=== PATIENT | male | born 1950 | race Caucasian/White ===

== ENCOUNTER 2016-05-12 11:03 | Inpatient (IN) | payer BC, MEDICARE ==
[~2016-05-12] VITALS: Ht 157.5 cm; Wt 83.5 kg
[~2016-05-12 11:03] MED LIST: ASPI-664 PO; CARV6.2579 PO; CRES10 PO; DIGO125T PO; FURO20TA PO; LOSA50TA6 PO; SITA100T8 PO
[2016-05-12] MEDS ORDERED: ASPIRIN 325 MG TAB PO ONE (12:30)
[2016-05-12] MEDS ORDERED: FUROSEMIDE 40 MG INJ IV ONE (12:30)
[2016-05-12 12:38] LABS: BASOPHIL # 0.1 10^3/ul (0.0-0.1); BASOPHILS % 0.8 % (0.0-2.0); EOSINOPHILS # 0.2 10^3/ul (0.0-0.5); EOSINOPHILS % 2.2 % (0.0-7.0); HEMATOCRIT 42.7 % (42.0-52.0); HEMOGLOBIN 13.9 g/dl (14.0-18.0); LYMPHOCYTES % 12.1 % (15.0-51.0); MEAN CORPUSCULAR HEMOGLOBIN 28.2 pg (29.0-33.0); MEAN CORPUSCULAR HGB CONC 32.6 g/dl (32.0-37.0); MEAN CORPUSCULAR VOLUME 86.7 fl (82.0-101.0); MEAN PLATELET VOLUME 7.7 fl (7.4-10.4); MONOCYTE # 1.2 10^3/ul (0.3-0.9); MONOCYTES % 13.8 % (0.0-11.0); NEUTROPHILS % 71.1 % (39.0-77.0); PLATELET COUNT 240 10^3/UL (140-440); RED BLOOD COUNT 4.92 10^6/ul (4.70-6.10); RED CELL DISTRIBUTION WIDTH 18.1 % (11.5-14.5); UNCORRECTED WBC 8.4 10^3/ul (4.8-10.8); WHITE BLOOD COUNT 8.4 10^3/ul (4.8-10.8)
[2016-05-12 12:39] LABS: CONDITION 1
--- NOTE | 2016-05-12 12:39 | RADRPT ---
PROCEDURE: XR Chest. CLINICAL INDICATION: Shortness of breath. TECHNIQUE: Single frontal view. COMPARISON: 05/02/2014. FINDINGS: There is moderate left basilar atelectasis, improved. The lungs are otherwise clear appear The heart is enlarged. There is calcification in the aorta consistent with atherosclerosis. There are sternal wires. There may be a small left pleural effusion. There is no right pleural effusion. There is no pneumothorax. IMPRESSION: 1. Moderate left basilar atelectasis, improved. 2. Cardiomegaly and atherosclerosis. 3. Previous median sternotomy. 4. Possible small left pleural effusion. RPTAT: QQ .Parish Lee MD, MD Date Time Electronically viewed and signed by .Parish Lee MD, MD on 05/12/2016 12:39 .R/
[2016-05-12 12:40] LABS: LH ANALYZER COMMENTS 1
[2016-05-12 12:46] LABS: ALBUMIN 3.5 g/dl (3.3-4.9)
[2016-05-12 12:47] LABS: POTASSIUM 4.7 mmol/L (3.5-5.1)
[2016-05-12 12:48] LABS: CREATININE 0.65 mg/dl (0.61-1.24)
[2016-05-12 12:49] LABS: ALBUMIN/GLOBULIN RATIO 0.89; BILIRUBIN,INDIRECT 0.6 mg/dl (0-1.1); BILIRUBIN,TOTAL 0.6 mg/dl (0.2-1.3); TOTAL PROTEIN 7.4 g/dl (6.1-8.1)
[2016-05-12 13:02] LABS: TROPONIN-I 0.02 ng/ml (0.00-0.12)
[2016-05-12] MEDS ORDERED: ENALAPRILAT 1.25 MG INJ IV ONE (13:30)
--- NOTE | 2016-05-12 13:50 | ERA ---
ER Documentation Chief Complaint Date/Time DATE: 05/12/16 TIME: 13:44 Chief Complaint here for paracenthesis, ap, sob on exertion,hx cbag HPI 65-year-old man presents with increasing dyspnea on exertion, orthopnea, paroxysmal nocturnal dyspnea, and bilateral lower extremity swelling despite using furosemide as prescribed daily. He denies high salt intake. Patient denies chest pain, no cough, no fevers or chills, no vomiting or diarrhea. Patient has a history of congestive heart failure last EF equals 50% ROS All systems reviewed and are negative except as per history of present illness. Medications Home Meds Active Scripts Losartan Potassium* (Losartan Potassium*) 50 Mg Tablet, 50 MG PO DAILY, #60 TAB Prov:TANI CAMPBELL 05/05/14 Furosemide* (Lasix*) 20 Mg Tab, 20 MG PO DAILY, #60 Prov:TANI CAMPBELL 05/05/14 Reported Medications Aspirin* (Aspirin* EC) 81 Mg Tablet.dr, 81 MG PO DAILY, TAB 05/01/14 Digoxin* (Digoxin*) 0.125 Mg Tab, 0.125 MG PO DAILY, TAB 05/01/14 Carvedilol* (Carvedilol*) 6.25 Mg Tablet, 6.25 MG PO BID, TAB 05/01/14 Sitagliptin* (Januvia*) 100 Mg Tablet, 100 MG PO DAILY, TAB 05/01/14 Rosuvastatin Calcium* (Crestor*) 10 Mg Tablet, 10 MG PO DAILY 10/23/11 Allergies Allergies: Coded Allergies: No Known Allergy (Unverified , 05/01/14) PMhx/Soc Hypertension, diabetes mellitus, congestive heart failure, coronary bypass graft and later angioplasty with stent placement History of Surgery: No Anesthesia Reaction: No Hx Neurological Disorder: No Hx Respiratory Disorders: No Hx Cardiac Disorders: Yes (open heart surgery) Hx Psychiatric Problems: No Hx Miscellaneous Medical Probl: Yes (Ascites) Hx Alcohol Use: No Hx Substance Use: Yes (Long time ago. Won't say.) Hx Tobacco Use: No Smoking Status: Never smoker FmHx Family History: No diabetes Physical Exam Vitals Vital Signs Date Time Temp Pulse Resp B/P Pulse Ox O2 Delivery O2 Flow Rate FiO2 05/12/16 11:09 98.1 81 20 193/98 98 Physical Exam GENERAL: Well-developed, well-nourished, well-hydrated, in no apparent distress , looks nontoxic in appearance HEENT: Moist mucous membranes, pink conjunctiva, positive JVD, no goiter, no jaundice or icterus, extraocular movements intact without pain. No submandibular induration, and no pharyngeal erythema NEURO: Alert and oriented 3, cranial nerves II through XII intact bilaterally, pupils equal round reactive to light, no focal deficits or facial asymmetry, sensation intact distally Strength 5/5 in upper and lower extremities bilaterally CARDIAC: Regular rate and rhythm, no murmurs rubs or gallops LUNGS: Crackles at the bases worse on the left compared to the right, no wheezing or stridor ABDOMEN: Soft nontender, no guarding, no rigidity, no rebound, no psoas sign no obturator sign. Normoactive bowel sounds SKIN: Warm and dry to touch, no abrasions, contusions, or hematomas, no lacerations, no ecchymosis, no target lesions, and without ulcers EXTREMITIES: No clubbing cyanosis, 3+ pitting edema in the lower extremities bilaterally, calves are bilaterally symmetrical, no Homans sign, no popliteal cord sign. Distal pulses equal and bilateral PSYCH: Normal affect without agitation or irritability Result Diagram: 05/12/16 1223 05/12/16 1223 Results 24 hrs Laboratory Tests Test 05/12/16 12:23 Alanine Aminotransferase (ALT/SGPT) 19IU/L Albumin 3.5g/dl Albumin/Globulin Ratio 0.89 Alkaline Phosphatase 151IU/L Anion Gap 19 Aspartate Amino Transf (AST/SGOT) 37IU/L B-Type Natriuretic Peptide 9170PG/ML Basophils # 0.110^3/ul Basophils % 0.8% Blood Morphology Comment Blood Urea Nitrogen 21mg/dl Calcium Level 9.0mg/dl Carbon Dioxide Level 24mmol/L Chloride Level 106mmol/L Creatinine 0.65mg/dl Direct Bilirubin 0.00mg/dl Eosinophils # 0.210^3/ul Eosinophils % 2.2% Globulin 3.90g/dl Glucose Level 152mg/dl Hematocrit 42.7% Hemoglobin 13.9g/dl Indirect Bilirubin 0.6mg/dl Lipase 134U/L Lymphocytes # 1.010^3/ul Lymphocytes % 12.1% Mean Corpuscular Hemoglobin 28.2pg Mean Corpuscular Hemoglobin Concent 32.6g/dl Mean Corpuscular Volume 86.7fl Mean Platelet Volume 7.7fl Monocytes # 1.210^3/ul Monocytes % 13.8% Neutrophils # 6.010^3/ul Neutrophils % 71.1% Nucleated Red Blood Cells # 0.010^3/ul Nucleated Red Blood Cells % 0.0/100WBC Platelet Count 31739^3/UL Potassium Level 4.7mmol/L Red Blood Count 4.9210^6/ul Red Cell Distribution Width 18.1% Sodium Level 144mmol/L Total Bilirubin 0.6mg/dl Total Protein 7.4g/dl Troponin I 0.020ng/ml White Blood Count 8.410^3/ul Current Medications Medications (Trade) Dose Ordered Sig/Abhishek Route PRN Reason Start Time Stop Time Status Last Admin Dose Admin Furosemide (Lasix) 60 mg ONCE ONCE IV 05/12/16 12:30 05/12/16 12:31 DC 05/12/16 12:39 Aspirin (Aspirin) 325 mg ONCE ONCE PO 05/12/16 12:30 05/12/16 12:31 DC 05/12/16 12:35 Enalaprilat (Vasotec Iv) 1.25 mg ONCE ONCE IV 05/12/16 13:30 05/12/16 13:31 DC 05/12/16 13:31 Procedures/MDM IV line was established patient was placed on lunchroom monitor rhythm strip revealed a sinus rhythm at about 80 bpm with upright P and T waves. Patient was afebrile. I administered furosemide 60 mg IV 1 and aspirin 325 mg p.o. for cardioprotective measures. For hypertension I administered enalapril 1.25 mg IV. One view chest x-ray performed, read by me as sternotomy wires in place and cardiomegaly with cephalization of vessels, no acute infiltrates, no pneumothorax. EKG performed, read by me: 76 bpm, normal sinus rhythm, normal axis, no acute ST segment changes, narrow QRS complex, with good R-wave progression in precordial leads. CBC and electrolytes were normal, liver function tests were normal, troponin was negative. BNP was over 9000 consistent with decompensated heart failure. Patient will be admitted to telemetry setting for continued medical management and cardiology consultation Departure Diagnosis: Primary Impression: CHF (congestive heart failure) Qualified Code: I50.21 - Acute systolic congestive heart failure Additional Impression: Hypertension Qualified Code: I10 - Essential hypertension Condition: Fair ARLENE SANCHEZ MD May 12, 2016 13:50
[2016-05-12] MEDS ORDERED: PRAV40TA76 PO (13:53)
[2016-05-12] MEDS ORDERED: METO25TA7 PO (13:54)
[2016-05-12] MEDS ORDERED: CARV12.579 PO (13:54)
[2016-05-12] MEDS ORDERED: LORAZEPAM 0.5 MG TAB PO PRN (16:00)
[2016-05-12] MEDS ORDERED: ACETAMINOPHEN 325 MG TAB PO PRN (16:00)
[2016-05-12] MEDS ORDERED: NITROGLYCERIN (SL) 0.4 MG TAB SL PRN (16:00)
[2016-05-12] MEDS ORDERED: NACL 0.9% 3 ML SYG IV SCH (16:00)
[2016-05-12] MEDS ORDERED: DOCUSATE SODIUM 100 MG CAP PO PRN (16:00)
[2016-05-12] MEDS ORDERED: ONDANSETRON 4 MG TAB PO PRN (16:00)
[2016-05-12] MEDS ORDERED: GLUCAGON 1 MG INJ IM PRN (17:30)
[2016-05-12] MEDS ORDERED: LISINOPRIL 5 MG TAB PO ONE (17:30)
[2016-05-12] MEDS ORDERED: DEXTROSE 50% 50 ML SYRINGE IV PRN ×2 (17:30)
[2016-05-12] MEDS ORDERED: GLUCOSE GEL 15 GRAM TUBE BUCCAL PRN (17:30)
[2016-05-12] MEDS ORDERED: GLUCOSE GEL 15 GRAM TUBE PO PRN ×2 (17:30)
--- NOTE | 2016-05-12 17:50 | HP ---
DATE OF ADMISSION: 05/12/2016 PUBLIC HEALTH WORKER: Cardiology. CHIEF COMPLAINT: Shortness of breath and fluid overload. HISTORY OF PRESENT ILLNESS: This is a pleasant 65-year-old gentleman with past medical history of c ongestive heart failure, hypertension, coronary artery disease status post coronary artery bypass gr aft, lower extremity angioplasty, diabetic mellitus, dyslipidemia who follows up with Dr. Cabezas, ca rdiology, as an outpatient, who presents to [facility] secondary to having lower e xtremity edema and mild shortness of breath, paroxysmal nocturnal dyspnea which he requires 2 pillow s to sleep at night. The patient also complains of having exacerbation of shortness of breath durin g ambulation more than 2 blocks. He denies having any chest pain, nausea, vomiting, diarrhea. No h eadache, dizziness, lightheadedness. No change in visual acuity, diplopia, photophobia. No recent travel and no sick contact. No calf pain. No heat and cold intolerance. No neck pain, no restrict ed range of motion in upper and lower extremities. Upon arrival to the emergency room, the patient was treated with digoxin, Vasotec, aspirin and Lasix. His vitals were found to be temperature 98.1, pulse 81, respirations 20, blood pressure 193/89, oxygen 98% room air. The patient was treated wit h 60 mg IV Lasix during the course of the emergency room. His chest x-ray demonstrated moderate lef t basilar atelectasis, cardiomegaly, atherosclerosis, previous median sternectomy, possible small pl eural effusion. The patient at this time denies having any other discomfort. PAST MEDICAL AND SURGICAL HISTORY: As above per HPI. MEDICATIONS: 1. Aspirin 81 mg. 2. Coreg 12.5 mg 3. Digoxin 0.125 mg. 4. Lasix 20 mg 5. Metoprolol XL 25 mg. 6. Pravastatin 40 mg. 7. Januvia 100 mg. ALLERGIES: NO KNOWN DRUG ALLERGIES. SOCIAL HISTORY: He is a former smoker who quit smoking about 4 years ago. FAMILY HISTORY: Positive for coronary artery disease, diabetes mellitus. REVIEW OF SYSTEMS: As above per HPI, otherwise 12 review of systems was found to be negative. PHYSICAL EXAMINATION: VITAL SIGNS: Temperature 98.3, pulse 72, respirations 20, blood pressure 160/100, oxygen saturation 97% room air. GENERAL APPEARANCE: The patient is lying in bed comfortably without any distress. He is awake, godfrey rt, oriented. He is able to answer my questions properly. He is not using any accessory muscles fo r breathing. EYES AND ENT: Conjunctivae and lids are normal. Pupils are normal. Extraocular normal. Hearing g rossly normal. Lips, teeth, gums normal. Oral mucosa moist. NECK: Supple. Trachea is midline. No lymphadenopathy. RESPIRATORY: Effort is normal. Clear to auscultate bilaterally. CARDIOVASCULAR: Normal S1, S2. Regular rhythm and rate. No murmur, no bruits, no edema. Peripher al pulses, radial pulses palpable. Cap refill is normal. CHEST: Normal expansion of thorax during inspiration. GASTROINTESTINAL: Abdomen is soft, nontender, not distended. Bowel sounds are present. No guardin g, no rebound. GENITOURINARY: Deferred. MUSCULOSKELETAL: Upper and lower extremities within normal limits, full range of motion, strength 5 /5 in both upper and lower extremities. NEUROLOGIC: Cranial nerves II through XII are grossly intact. PSYCHIATRIC: Normal judgment and insight. Alert and oriented x3. Mood and affect are normal. LABORATORY WORK: WBC 8.4, hemoglobin 13.9, hematocrit 42.7, platelets 240. Sodium 144, potassium 4 .0, chloride 106, bicarbonate 24, BUN 21, creatinine 0.65, glucose 152, calcium 9.0. BNP 9170. ASSESSMENT AND PLAN: 1. Congestive heart failure exacerbation with BMP 9170. Cardiology has been consulted. We will ob tain a 2-D echocardiogram. We will continue Coreg, Lasix, and Toprol. We will also start the patie nt on low dose of lisinopril. 2. Essential hypertension, uncontrolled at the time of admission. Restart Coreg and Lasix. Also, patient was started on low dose of lisinopril. Continue to monitor. 3. Dyslipidemia. Continue statin. Follow lipid panel in a.m. 4. Diabetes mellitus. Continue Januvia. Place the patient on low-carbohydrate diet. 5. History of coronary artery disease status post coronary artery bypass graft. Continue aspirin, beta eliane, statin. Cardiology has been consulted. 6. We will continue to monitor patient closely. Further recommendations, management, and treatment as per clinical course. Total amount of time spent for evaluation of patient and admission workup, 40 minutes. Dictated By: RASHAWN PÉREZ MD PN/[place] Conf#: [id number] DID#: [id number]
[2016-05-12] MEDS: INSULIN ASPART [NOVOLOG] 3 ML PEN SC SCH ×2 (18:00→21:00)
[2016-05-12] MEDS: FUROSEMIDE 20 MG INJ IV SCH (19:15)
[2016-05-12] MEDS: ATORVASTATIN 10 MG TAB PO SCH (21:37)
[2016-05-12 22:57] VITALS: TEMP 98.4
[2016-05-13] VITALS (12 sets, daily range): BP systolic 130–175; BP diastolic 65–87; PULSE 34–71; RESP 18–21; Ht 157.5 cm; Wt 83.5 kg
[2016-05-13] MEDS: FUROSEMIDE 20 MG INJ IV SCH (06:14)
[2016-05-13] MEDS: INSULIN ASPART [NOVOLOG] 3 ML PEN SC SCH ×4 (06:14→20:29)
[2016-05-13] MEDS: ASPIRIN (EC) 81 MG TAB PO SCH (08:19)
[2016-05-13] MEDS: LINAGLIPTIN 5 MG TABLET PO SCH (08:19)
[2016-05-13] MEDS: ENOXAPARIN 40 MG/0.4 ML SYG SC SCH (08:40)
[2016-05-13] MEDS ORDERED: LISINOPRIL 5 MG TAB PO SCH (09:00)
[2016-05-13] MEDS ORDERED: FUROSEMIDE 20 MG TAB PO SCH (09:00)
[2016-05-13] MEDS ORDERED: DIGOXIN 0.125 MG TAB PO SCH (09:00)
[2016-05-13] MEDS ORDERED: METOPROLOL (XL) 25 MG TAB PO SCH (09:00)
[2016-05-13] MEDS ORDERED: LISINOPRIL 10 MG TAB PO ONE (10:00)
--- NOTE | 2016-05-13 10:22 | PDOCDIS ---
Discharge Instructions CONDITION Patient Condition: Good HOME CARE INSTRUCTIONS: Special Diet: cardiac ACTIVITY: Activity Restrictions: No Restrictions FOLLOW UP/APPOINTMENTS Appointments Follow up with cardiology and PCP in one week RASHAWN PÉREZ MD May 13, 2016 10:22
[2016-05-13] MEDS ORDERED: PRAV40TA76 PO (10:28)
[2016-05-13] MEDS ORDERED: FURO20TA PO (10:28)
[2016-05-13] MEDS ORDERED: CARV12.579 PO (10:28)
[2016-05-13] MEDS ORDERED: BENA10TA48 PO (10:28)
[2016-05-13] MEDS ORDERED: SITA100T8 PO (10:28)
--- NOTE | 2016-05-13 11:49 | DS ---
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 PROCEDURE: Echocardiogram DISCHARGE DIAGNOSES: 1. Congestive heart failure exacerbation. Patient is status post Coreg, Lasix, Benazepril. Cardio logy was consulted. Follow cardiology as outpatient. 2. Essential hypertension, uncontrolled at the time of admission. Patient has been continued on Co reg, Lasix and has also been started on BRETT inhibitor. 3. Dyslipidemia. Continue statin. 4. Diabetes mellitus, well controlled on Januvia. 5. History of coronary artery disease status post coronary artery bypass graft. Continue aspirin, beta blockers, statin. MEDICATIONS: 1. New prescription, benazepril 10 mg 1 tab p.o. daily. 2. The patient will continue aspirin 81 mg. 3. Coreg 12.5 mg b.i.d. 4. Digoxin 0.125 mg. 5. Pravastatin 40 mg. 6. Januvia 100 mg. 7. Lasix has been changed from 20 mg daily to b.i.d. 8. Medication which stopped was metoprolol since patient was also on Coreg. ALLERGIES: NO KNOWN DRUG ALLERGIES. DISPOSITION: Home. DIET: Cardiac diet. ACTIVITY: As tolerated. HOSPITAL COURSE: This is a very pleasant 65-year-old gentleman with past medical history of congest lance heart failure, hypertension, coronary artery disease status post coronary bypass graft and lower extremity angioplasty, diabetes mellitus, dyslipidemia, who presented to [facility] secondary to having lower extremity edema and mild shortness of breath, paroxysmal nocturnal dysp mg which requires 2 pillows to sleep at night. Patient also has been complaining of having exacerb ation of shortness of breath during ambulation 1 or 2 blocks. The patient denies having any chest p ain, nausea, vomiting, diarrhea. No headache, no recent travel history. No sick contact. Upon arr ival to emergency, the patient's blood pressure was found to be 192/89. He was treated with Vasotec , aspirin and IV Lasix. His blood pressure started to improve. He was admitted to telemetry floor. Cardiology was consulted. Patient has been having good diuresis of total of 1850 mL since his adm ission. He has been able to tolerate his oral intake. He has been able to ambulate without any dif ficulties, lower extremity edema has improved significantly. Regarding his hypertension, his blood pressure was better controlled since he has been started on an BRETT inhibitor. He has been continue d on Coreg. At this time, we will discontinue metoprolol since he is already on Coreg. His Lasix h as been increased to twice daily. I have also spoken to him regarding the importance of being on a low salt diet and being compliant with his medication and his diet. At this time, patient is medica lly stable to be discharged home after evaluation by the patient financial coordinator with [facility]. Vitals, temperature 98.1, pulse 68, respiration 18, blood pressure 160/77 whic h was this morning, pulse ox 97% on room air. Labs this morning. After evaluation with cardiology, he was discharged home in stable condition with close followup with his primary care ____ cardiolog y. Dictated By: RASHAWN BRYSON/[place] Conf#: [id number] DID#: [id number]
[2016-05-13] MEDS: DIGOXIN 0.125 MG TAB PO SCH (13:00)
--- NOTE | 2016-05-13 14:20 | RADRPT ---
PROCEDURE: US Abdomen limited . CLINICAL INDICATION: Ascites TECHNIQUE: Multiple real-time images were acquired of the patient's abdomen utilizing a high resol ution transducer. COMPARISON: None FINDINGS: There is a moderate amount of ascites. RPTAT: AA IMPRESSION: Moderate amount of ascites. .Charles Shirley MD, Date Time Electronically viewed and signed by .Charles Shirley MD, on 05/13/2016 14:19 .S/
--- NOTE | 2016-05-13 15:38 | CONS ---
Date/Time of Note Date/Time of Note DATE: 05/13/16 TIME: 15:34 Assessment/Plan Assessment/Plan Chief Complaint/Hosp Course 1) CHF systolic and diastolic acute and chronic 2) CAD 3) CABG 4) LV dysfunction 5) HTN 6) HLP 7) PVD Problems: Additional Assessment/Plan 1) agree with antihypertensive mgt 2) will increase and continue iv lasix for 12 hours 3) will review echo 4) dw and patient in detail. seems upset as to the staff, MDs and hospital. Attributes patients issues on past cardiac surgery. discussed and explained all details of care to the best of my abilities Consultation Date/Type/Reason Admit Date/Time May 12, 2016 at 13:40 Date of Consultation: May 13, 2016 Type of Consultation: ophtho Reason for Consultation CHF Referring Provider: RASHAWN PÉREZ MD Hx of Present Illness admitted with SOB, abdominal fullness, no chest pain, no syncope or near syncope , still has abdominal fullness ENT: no complaints Respiratory: shortness of breath Cardiovascular: no complaints Gastrointestinal: other (ascites) Musculoskeletal: no complaints Skin: no complaints Neurologic: no complaints Past Medical History Medical History: congestive heart failure, coronary artery disease, high cholesterol, hypertension Past Surgical History Past Surgical Hx: coronary bypass surgery Family History Significant Family History: hypertension Social History Alcohol Use: occasionally Smoking Status: Never smoker Drug Use: none Exam/Review of Systems Vital Signs Vitals Vital Signs Date Time Temp Pulse Resp B/P Pulse Ox O2 Delivery O2 Flow Rate FiO2 05/13/16 12:06 64 05/13/16 11:45 98.0 18 130/65 98 05/13/16 02:42 Room Air Intake and Output 05/12/16 05/12/16 05/13/16 15:00 23:00 07:00 Intake Total 400 ml Output Total 1600 ml 250 ml Balance -1600 ml 150 ml Exam Constitutional: alert, oriented Head: atraumatic, normocephalic Neck: jvd Respiratory: diminished breath sounds Cardiovascular: regular rate and rhythm Gastrointestinal: ascites Musculoskeletal: nl extremities to inspection Extremities: normal pulses Results Result Diagram: 05/12/16 1223 05/12/16 1223 Results 24 hrs Laboratory Tests Test 05/12/16 19:10 05/12/16 21:37 05/13/16 06:12 05/13/16 11:48 Bedside Glucose 80 106 92 134 Medications Medications Current Medications Aspirin (Halfprin) 81 mg DAILY PO Last administered on 05/13/16 08:19; Admin Dose 81 MG; Start 05/13/16 at 09:00 Carvedilol (Coreg) 12.5 mg BID PO Last administered on 05/13/16 08:19; Admin Dose 12.5 MG; Start 05/12/16 at 21:00 Atorvastatin Calcium (Lipitor) 10 mg DAILY@21 PO Last administered on 21:37; Admin Dose 10 MG; Start 05/12/16 at 21:00 Linagliptin (Tradjenta) 5 mg DAILY PO Last administered on 05/13/16 08:19; Admin Dose 5 MG; Start 05/13/16 at 09:00 Lorazepam (Ativan) 0.5 mg Q8H PRN PO ANXIETY; Start 05/12/16 at 16:00 Ondansetron HCl (Zofran Tab) 4 mg Q6H PRN PO NAUSEA AND/OR VOMITING; Start at 16:00 Nitroglycerin (Nitroglycerin (Sl Tab) 0.4 Mg) 1 tab Q5M PRN SL CHEST PAIN; Start 05/12/16 at 16:00 Acetaminophen (Tylenol Tab) 650 mg Q6H PRN PO PAIN LEVEL 1-3 OR FEVER; Start at 16:00 Docusate Sodium (Colace) 100 mg Q12H PRN PO CONSTIPATION; Start 05/12/16 at 16: 00 Enoxaparin Sodium (Lovenox) 40 mg DAILY SC Last administered on 05/13/16 08:40 ; Admin Dose 40 MG; Start 05/13/16 at 09:00 Digoxin (Digoxin) 0.125 mg DAILY@13 PO Last administered on 05/13/16 13:00; Admin Dose 0.125 MG; Start 05/13/16 at 13:00 Miscellaneous Information 1 ea NOTE XX ; Start 05/12/16 at 17:30 Glucose (Glutose) 15 gm Q15M PRN PO DECREASED GLUCOSE; Start 05/12/16 at 17:30 Glucose (Glutose) 22.5 gm Q15M PRN PO DECREASED GLUCOSE; Start 05/12/16 at 17: 30 Dextrose (D50w Syringe) 25 ml Q15M PRN IV DECREASED GLUCOSE; Start 05/12/16 at 17:30 Dextrose (D50w Syringe) 50 ml Q15M PRN IV DECREASED GLUCOSE; Start 05/12/16 at 17:30 Glucagon (Glucagen) 1 mg Q15M PRN IM DECREASED GLUCOSE; Start 05/12/16 at 17:30 Glucose (Glutose) 15 gm Q15M PRN BUCCAL DECREASED GLUCOSE; Start 05/12/16 at 17 :30 Influenza Virus Vaccine (Fluzone) 0.5 ml ONCE ONCE IM* ; Start 05/15/16 at 09:00 ; Stop 05/15/16 at 09:01 Lisinopril (Zestril) 10 mg DAILY PO ; Start 05/14/16 at 09:00 NEGRO ANGEL MD May 13, 2016 15:38
[2016-05-13] MEDS: FUROSEMIDE 40 MG INJ IV SCH (18:04)
[2016-05-13] MEDS: ATORVASTATIN 10 MG TAB PO SCH (20:28)
[2016-05-14] VITALS (14 sets, daily range): BP systolic 116–164; BP diastolic 60–86; PULSE 38–79; RESP 18–20
[2016-05-14] MEDS: FUROSEMIDE 40 MG INJ IV SCH (06:12)
[2016-05-14] MEDS: INSULIN ASPART [NOVOLOG] 3 ML PEN SC SCH ×2 (07:55→11:50)
[2016-05-14] MEDS: LINAGLIPTIN 5 MG TABLET PO SCH (08:15)
[2016-05-14] MEDS: ASPIRIN (EC) 81 MG TAB PO SCH (08:15)
[2016-05-14] MEDS: ENOXAPARIN 40 MG/0.4 ML SYG SC SCH (08:21)
[2016-05-14] MEDS ORDERED: BENA10TA48 PO (08:42)
[2016-05-14] MEDS ORDERED: LISINOPRIL 10 MG TAB PO SCH (09:00)
[2016-05-14] MEDS: DIGOXIN 0.125 MG TAB PO SCH (12:40)
[2016-05-14] MEDS ORDERED: CARV6.2579 PO (15:19)
--- NOTE | 2016-05-14 18:11 | CONS ---
Date/Time of Note Date/Time of Note DATE: 05/14/16 TIME: 18:06 Assessment/Plan Assessment/Plan Additional Assessment/Plan Acute decompensated systolic congestive heart failure Severe cardiomyopathy Intermittent heart block Coronary artery disease with history of CABG -I did have an extensive discussion with her patient and at bedside. I did discuss decompensated congestive heart failure, abnormal heart rhythms and risk of syncope. Patient denies any symptoms of dizziness, shortness of breath or chest pain. He is adamant he is going home. He wants to follow-up with his new back tufter in [place]. I did discuss the heart block issues, and the tells me "your machines here are broken, he is fine" when I explained further this is not the case, she still refused to acknowledge any cardiac issues. The patient tells me his shortness of breath is because he had too much to eat and would not a knowledge that he was in volume overload. With that said, given patient denies any current symptoms of dizziness, shortness of breath, palpitations or chest pain and is refusing any further workup, recommend patient to follow up with his back tufter. I would stop the digoxin and decrease the Coreg dose in half. Consultation Date/Type/Reason Admit Date/Time May 12, 2016 at 13:40 Initial Consult Date 05/13/16 Type of Consultation: cv Referring Provider: RASHAWN PÉREZ MD 24 HR Interval Summary Free Text/Dictation Patient denies chest pain, dizziness or shortness of breath. Ambulating in the room and hallway without dizziness or shortness of breath Exam/Review of Systems Vital Signs Vitals Vital Signs Date Time Temp Pulse Resp B/P Pulse Ox O2 Delivery O2 Flow Rate FiO2 05/14/16 16:14 66 05/14/16 15:28 97.8 18 134/86 95 05/13/16 02:42 Room Air Intake and Output 05/13/16 05/13/16 05/14/16 15:00 23:00 07:00 Intake Total 700 ml Output Total 1300 ml Balance -600 ml Exam No apparent distress, speaking in complete sentences Constitutional: alert, oriented Head: normocephalic Neck: supple Respiratory: other (course breath sounds bilaterally, decreased at left base) Cardiovascular: other (S1-S2 heard), regular rate and rhythm Gastrointestinal: bowel sounds, non-tender, soft Extremities: edema (trace) Results Result Diagram: 05/12/16 1223 05/12/16 1223 Results 24 hrs Laboratory Tests Test 05/13/16 20:21 05/14/16 08:13 05/14/16 12:19 Bedside Glucose 153 114 105 Jaxon Palomares DO May 14, 2016 18:11
--- NOTE | 2016-05-14 19:32 | RADRPT ---
Echocardiogram Report Patient Name: MATEUSZ TRENT Gender: Male Date: 1950 Study Date: 13-May-2016 Health Inspector: Patrick [facility] Location: [facility] Ref. Physician: RASHAWN PÉREZ Quality: Good Procedures: Transthoracic echocardiogram with complete 2D, M-Mode, and doppler examination. Indications: Shortness of breath. 2D/M Mode Doppler Measurement Value Normal Ranges Measurement Value Normal Ranges LVIDd 2D 4.9 3.5 - 5.6 cm AI Peak PG 36.0 mmHg LVIDs 2D 4.4 2.1 - 4.1 cm AI Peak Jerardo 3.0 m/sec FS 2D 9.6 % AI PHT 507.0 msec LVPWd 2D 1.3 0.6 - 1.1 cm LVOT Peak Jerardo 0.6 m/sec IVSd 2D 1.3 0.6 - 1.1 cm LVOT Peak PG 2.0 mmHg IVS/LVPW 2D 1.0 MV E Peak Jerardo 1.1 m/sec AoR Diam 2D 2.8 2.0 - 3.7 cm MV A Peak Jerardo 0.4 m/sec LA/Ao 2D 2 0 - 1 MV E/A 2.6 EDV 2D 118.0 cm3 MV Decel Time 197 msec ESV 2D 87.5 cm3 MV E/A 2.6 LA Dimen 2D 5.4 2.3 - 4.0 cm MR Peak PG 36.0 mmHg MR Peak Jerardo 3.0 m/sec TR Peak Jerardo 2.7 m/sec TR Peak PG 30.0 mmHg Findings Left Ventricle: Normal left ventricular cavity size. Mild concentric left ventricular hypertrophy. Moderate to severe left ventricular systolic dysfunction. Ejection fraction is visually estimated at 30 %. Abnormal Diastolic Function. Right Ventricle: Mild right ventricular systolic dysfunction. Mild enlargement of right ventricle. Left Atrium: There is moderate enlargement of left atrium. Right Atrium: There is mild enlargement of right atrium. Mitral Valve: Normal appearance of the mitral valve. Mild mitral leaflet calcification. Mild mitral valve regurgitation. Aortic Valve: No hemodynamically significant aortic stenosis by doppler. Aortic cusps appear mildly calcified. Moderate aortic valve regurgitation. Tricuspid Valve: Normal appearance of the tricuspid valve. There is mild tricuspid regurgitation. Pulmonic Valve: There is mild pulmonic regurgitation. Pericardium: Normal pericardium with no significant pericardial effusion. Left pleural effusion seen. Aorta: Ascending aorta is dilated. Ascending Aorta 4.1 cm. IVC: Dilated inferior vena cava with poor inspiratory collapse consistent with elevated right atrial pressures. Conclusions Normal left ventricular cavity size. Mild concentric left ventricular hypertrophy. Moderate to severe left ventricular systolic dysfunction. Ejection fraction is visually estimated at 30 %. Abnormal Diastolic Function. Mild right ventricular systolic dysfunction.. Mild enlargement of right ventricle. There is moderate enlargement of left atrium. There is mild enlargement of right atrium. Mild mitral valve regurgitation. No hemodynamically significant aortic stenosis by doppler. Moderate aortic valve regurgitation. There is mild tricuspid regurgitation. Ascending aorta is dilated. Ascending Aorta 4.1 cm. Normal pericardium with no significant pericardial effusion. Left pleural effusion seen. Electronically Signed By: Jaxon Palomares 14-May-2016 19:31:40 -0800 Patient Name: MATEUSZ TRENT Study Date: 13-May-2016 [id number]
--- NOTE | 2016-05-14 19:36 | DS ---
DATE OF ADMISSION: 05/12/2016 DATE OF DISCHARGE: 05/14/2016 ADDENDUM CONSULTANTS: Mortgage Analyst. PROCEDURE: A 2-D echocardiogram. IMAGING: Abdominal ultrasound which demonstrated moderate amount of ascites. DISCHARGE DIAGNOSES: 1. Congestive heart failure exacerbation. The patient is status post Coreg, Lasix, benazepril. Ca rdiology was consulted. Continue diuresis. Compensated at this time. 2. Essential hypertension, better controlled on Coreg, Lasix and benazepril. 3. Dyslipidemia. Continue statin. 4. Diabetes mellitus, well controlled on Januvia. 5. History of coronary artery disease, status post coronary artery bypass graft. Continue aspirin, beta eliane, statin. 6. Moderate ascites. This is likely secondary to congestive heart failure exacerbation, has improv ed significantly status post diuresis. MEDICATIONS: 1. Benazepril 10 mg p.o. daily. 2. Aspirin 81 mg daily. 3. Coreg 12.5 mg p.o. b.i.d. 4. Digoxin 0.125 mg daily. 5. Pravastatin 40 mg daily. 6. Januvia 100 mg daily. 7. Lasix 20 mg p.o. b.i.d. Medication which was stopped was metoprolol. ALLERGIES: NO KNOWN DRUG ALLERGIES. DISPOSITION: Home. DIET: Low-carb cardiac diet. ACTIVITY: As tolerated. HOSPITAL COURSE: This is an addendum for discharge summary which was done by me on 05/13/2016. The patient's discharge was held secondary to continuation of diuresis which was requested by cardiolog ist. This is a very pleasant 65-year-old gentleman with past medical history of congestive heart fa ilure; hypertension; coronary artery disease, status post coronary artery bypass; lower extremity an gioplasty; diabetes mellitus; dyslipidemia, presented to [facility] secondary to h aving lower extremity edema, mild shortness of breath, abdominal distention, paroxysmal nocturnal dy spnea which required 2 pillows to sleep at night. The patient also has been complaining of having e xacerbation of shortness of breath with ambulation for more than 1 to 2 blocks. The patient was fou nd to have uncontrolled hypertension with blood pressure 192/89, was treated with Vasotec, aspirin, IV Lasix. His blood pressure started to improve. He was admitted to telemetry floor. Cardiology w as consulted. He was continued on IV diuresis during the course of hospitalization secondary to his history of diabetes mellitus and congestive heart failure. The patient was also started on benazep ril. His blood pressure this morning was found to be 128/60, temperature 97.6, pulse 68, respiratio ns 19, saturation 94%. PHYSICAL EXAMINATION: GENERAL: The patient is sitting on the edge of the bed comfortably without any acute distress. He is awake, alert, oriented. He is able to answer my questions properly. EYES, EARS, NOSE, THROAT: Conjunctivae and lids are normal. Pupils are normal. Extraocular normal . NECK: Supple. Trachea is midline. No JVD. LUNGS: Clear to auscultate bilaterally. CARDIOVASCULAR: Normal S1, S2. Regular rhythm and rate. ABDOMEN: Distention has improved significantly. EXTREMITIES: Upper, lower extremities within normal limits. Trace edema, bilateral lower extremiti es with significant improvement in his lower extremity edema. At this time, the patient is medically stable to be discharged home. Prescription has been provided . The patient is to follow with his primary care physician and Cardiology as outpatient. Dictated By: RASHAWN BRYSON/[place] Conf#: [id number] DID#: [id number]
[2016-05-15] MEDS ORDERED: INFLUENZA VIRUS VACCINE 0.5 ML SYG IM* ONE (09:00)
== END 2016-05-14 17:15 | disposition home or self-care (01) | DRG 292 ==
LOC: E/R 11:03 → TEL 13:40
PROVIDERS: ADMIT Family Medicine; ATTEND Family Medicine
DX: I50.43 Acute on chronic combined systolic (congestive) and diastolic (congestive) heart failure (principal); I42.9 Cardiomyopathy, unspecified; Z95.1 Presence of aortocoronary bypass graft; I10 Essential (primary) hypertension; E11.9 Type 2 diabetes mellitus without complications; I25.10 Atherosclerotic heart disease of native coronary artery without angina pectoris; E78.5 Hyperlipidemia, unspecified; I45.5 Other specified heart block; Z79.82 Long term (current) use of aspirin
CPT/HCPCS: 36415; 71010; 76705; 80053; 82962; 83690; 83880; 84484; 85025; 87400; 93005; 93306; 96374; 96375; 96376; J1940; J1650; J1815

== ENCOUNTER 2016-07-05 10:09 | Emergency (ER) | payer BC ==
[~2016-07-05] VITALS: Wt 86.0 kg
[~2016-07-05 10:09] MED LIST changes: +BENA10TA48 PO; -CRES10 PO; -DIGO125T PO; +FURO-110 PO; -FURO20TA PO; -LOSA50TA6 PO; +PRAV40TA76 PO
[2016-07-05] MEDS ORDERED: ERGO500037 PO (14:11)
[2016-07-05 14:32] LABS: ADD SCAN DIFF NO
[2016-07-05 14:43] LABS: ALBUMIN 3.5 g/dl (3.3-4.9)
[2016-07-05 14:44] LABS: INR 1.27; POTASSIUM 4.1 mmol/L (3.5-5.1); PT RATIO 1.3
[2016-07-05 14:45] LABS: PARTIAL THROMBOPLASTIN TIME 37.7 Sec (25.0-35.0)
[2016-07-05 14:46] LABS: ALBUMIN/GLOBULIN RATIO 0.92; BILIRUBIN,INDIRECT 0.5 mg/dl (0-1.1); BILIRUBIN,TOTAL 0.5 mg/dl (0.2-1.3); CREATININE 0.75 mg/dl (0.61-1.24); TOTAL PROTEIN 7.3 g/dl (6.1-8.1)
[2016-07-05 14:47] LABS: CALCIUM 9.2 mg/dl (8.4-10.2)
[2016-07-05 14:58] LABS: BASOPHIL # 0.1 10^3/ul (0.0-0.1); BASOPHILS % 0.7 % (0.0-2.0); EOSINOPHILS # 0.1 10^3/ul (0.0-0.5); EOSINOPHILS % 1.2 % (0.0-7.0); HEMATOCRIT 44.1 % (42.0-52.0); HEMOGLOBIN 14.3 g/dl (14.0-18.0); LYMPHOCYTES # 1.2 10^3/ul (0.8-2.9); MEAN CORPUSCULAR HEMOGLOBIN 28.7 pg (29.0-33.0); MEAN CORPUSCULAR HGB CONC 32.4 g/dl (32.0-37.0); MEAN CORPUSCULAR VOLUME 88.4 fl (82.0-101.0); MEAN PLATELET VOLUME 9.5 fl (7.4-10.4); MONOCYTES % 12.9 % (0.0-11.0); NEUTROPHIL # 5.4 10^3/ul (1.6-7.5); NEUTROPHILS % 69.9 % (39.0-77.0); PLATELET COUNT 272 10^3/UL (140-415); RED BLOOD COUNT 4.99 10^6/ul (4.70-6.10); RED CELL DISTRIBUTION WIDTH 18.2 % (11.5-14.5); WHITE BLOOD COUNT 7.7 10^3/ul (4.8-10.8)
[2016-07-05] MEDS ORDERED: LIDOCAINE 1% (MPF) 5 ML VIAL ONE (15:27)
[2016-07-05 15:32] LABS: ADD UMIC YES; URINE BILIRUBIN (Dip) 1+ (NEGATIVE); URINE BLOOD (Dip) 2+ (NEGATIVE); URINE COLOR YELLOW (YELLOW); URINE GLUCOSE (Dip) NEGATIVE (NEGATIVE); URINE KETONES (Dip) NEGATIVE (NEGATIVE); URINE LEUKOCYTE ESTERASE (Dip) NEGATIVE (NEGATIVE); URINE NITRITE (Dip) NEGATIVE (NEGATIVE); URINE TOTAL PROTEIN (Dip) 4+ (NEGATIVE); URINE UROBILINOGEN (Dip) 0.2 E.U./dL (0.1-1.0)
[2016-07-05 16:11] LABS: SQUAMOUS EPITHELIAL CELL,UR RARE; URINE RBCS 0-2 /HPF (0)
[2016-07-05 16:29] VITALS: BP 153/96; PULSE 87; RESP 18; TEMP 98.8
--- NOTE | 2016-07-05 16:50 | RADRPT ---
PROCEDURE: Ultrasound guided paracentesis. CLINICAL INDICATION: Ascites and shortness of breath. COMPARISON: No prior studies are available for comparison. TECHNIQUE: The risks, benefits, and alternatives were explained to the patient and/or the patient's family, inc luding but not limited to bleeding, infection, pain, visceral or vascular damage, shock, and . The patient and/or the patient's family understood the risks and the alternatives and wished to pro ceed with the procedure. Informed written consent was obtained. A procedural time out was performed . The patient's name, date of , and procedure to be performed were verified. Utilizing ultrasound guidance, optimal location for entry to the peritoneal cavity was ascertained. The overlying skin was prepped and draped in the usual sterile fashion. Approximately 10 ml of 1% Xylocaine was injected locally for pain control. Using ultrasound guidance, an 8 [place] catheter wa s introduced into the peritoneal cavity in the right lower quadrant without difficulty. FINDINGS: Initial images demonstrate ascites. Approximately 9.85 liters of serous fluid was aspirated and dis carded. The patient tolerated the procedure well without complication. IMPRESSION: 1. Successful ultrasound-guided paracentesis. RPTAT: QQ .Parish Lee MD, MD Date Time Electronically viewed and signed by .Parish Lee MD, on 07/05/2016 16:49 .R/
[2016-07-05 17:02] LABS: ICTOTEST NEGATIVE (NEGATIVE)
--- NOTE | 2016-07-05 18:25 | ERD ---
ER Documentation Chief Complaint Date/Time DATE: 07/05/16 TIME: 18:24 Chief Complaint ABDOMINAL PAIN AND DISTENTION FOR 1 MONTH. NEEDS PARACENTHESIS HPI Patient is a 65-year-old male with coronary disease and diabetes who presents saying that he needs a paracentesis. He said that there is been fluid in his belly which started accumulating 1 month ago. He has no fevers. He is speaking in full sentences. He is taking Lasix but it is not getting better. He had his last paracentesis about 1 month ago. ROS All systems reviewed and are negative except as per history of present illness. Medications Home Meds Active Scripts Carvedilol* (Carvedilol*) 6.25 Mg Tablet, 6.25 MG PO BID, #60 TAB Prov:SANDRA WYNN 05/14/16 Benazepril Hcl* (Benazepril Hcl*) 10 Mg Tablet, 10 MG PO BID, #60 TAB Prov:RASHAWN PÉREZ MD 05/14/16 Pravastatin Sodium* (Pravastatin Sodium*) 40 Mg Tablet, 40 MG PO HS, #30 TAB Prov:RASHAWN PÉREZ MD 05/13/16 Furosemide* (Lasix*) 20 Mg Tab, 20 MG PO BID, #60 Prov:RASHAWN PÉREZ MD 05/13/16 Sitagliptin* (Januvia*) 100 Mg Tablet, 100 MG PO DAILY, #30 TAB Prov:RASHAWN PÉREZ MD 05/13/16 Reported Medications Ergocalciferol (Vitamin D2) (VITAMIN D2) 50,000 Unit Capsule, 70617 UNIT PO EVERY 7 DAYS, CAP 07/05/16 Aspirin* (Aspirin* EC) 81 Mg Tablet.dr, 81 MG PO DAILY, TAB 05/01/14 Allergies Allergies: Coded Allergies: No Known Allergy (Unverified , 07/05/16) PMhx/Soc History of Surgery: No Anesthesia Reaction: No Hx Neurological Disorder: No Hx Respiratory Disorders: No Hx Cardiac Disorders: Yes (open heart surgery) Hx Psychiatric Problems: No Hx Miscellaneous Medical Probl: Yes (Ascites) Hx Alcohol Use: Yes (former) Hx Substance Use: No Hx Tobacco Use: No Smoking Status: Never smoker FmHx Family History: diabetes Physical Exam Vitals Vital Signs Date Time Temp Pulse Resp B/P Pulse Ox O2 Delivery O2 Flow Rate FiO2 07/05/16 16:29 98.8 87 18 153/96 97 07/05/16 10:21 98.8 80 21 188/87 97 Physical Exam Const: No acute distress Head: Atraumatic Eyes: Normal Conjunctiva ENT: Normal External Ears, Nose and Mouth. Neck: Full range of motion..~ No meningismus. Resp: Clear to auscultation bilaterally Cardio: Regular rate and rhythm, no murmurs Abd: Distended abdomen with positive fluid wave without pain on palpation Skin: No petechiae or rashes Back: No midline or flank tenderness Ext: No cyanosis, or edema Neur: Awake and alert Psych: Normal Mood and Affect Result Diagram: 07/05/16 1415 07/05/16 1415 Results 24 hrs Laboratory Tests Test 07/05/16 14:15 07/05/16 15:00 Activated Partial Thromboplast Time 37.7Sec Alanine Aminotransferase (ALT/SGPT) 20IU/L Albumin 3.5g/dl Albumin/Globulin Ratio 0.92 Alkaline Phosphatase 144IU/L Anion Gap 20 Aspartate Amino Transf (AST/SGOT) 27IU/L Basophils # 0.110^3/ul Basophils % 0.7% Blood Urea Nitrogen 22mg/dl Calcium Level 9.2mg/dl Carbon Dioxide Level 23mmol/L Chloride Level 108mmol/L Creatinine 0.75mg/dl Direct Bilirubin 0.00mg/dl Eosinophils # 0.110^3/ul Eosinophils % 1.2% Globulin 3.80g/dl Glucose Level 115mg/dl Hematocrit 44.1% Hemoglobin 14.3g/dl INR International Normalized Ratio 1.27 Indirect Bilirubin 0.5mg/dl Lipase 110U/L Lymphocytes # 1.210^3/ul Lymphocytes % 15.0% Mean Corpuscular Hemoglobin 28.7pg Mean Corpuscular Hemoglobin Concent 32.4g/dl Mean Corpuscular Volume 88.4fl Mean Platelet Volume 9.5fl Monocytes # 1.010^3/ul Monocytes % 12.9% Neutrophils # 5.410^3/ul Neutrophils % 69.9% Nucleated Red Blood Cells # 0.010^3/ul Nucleated Red Blood Cells % 0.0/100WBC Platelet Count 81978^3/UL Potassium Level 4.1mmol/L Prothrombin Time 16.0Sec Prothrombin Time Ratio 1.3 Red Blood Count 4.9910^6/ul Red Cell Distribution Width 18.2% Sodium Level 147mmol/L Total Bilirubin 0.5mg/dl Total Protein 7.3g/dl White Blood Count 7.710^3/ul Urine Bilirubin 1+ Urine Clarity CLEAR Urine Color YELLOW Urine Glucose NEGATIVE% Urine Hemoglobin 2+ Urine Ictotest NEGATIVE Urine Ketones NEGATIVE Urine Leukocyte Esterase NEGATIVE Urine Microscopic RBC 0-2/HPF Urine Microscopic WBC 2-5/HPF Urine Nitrite NEGATIVE Urine Specific [place] >=1.030 Urine Squamous Epithelial Cells RARE Urine Total Protein 4+ Urine Urobilinogen 0.2 E.U./dL Urine pH 5.5 Current Medications Medications (Trade) Dose Ordered Sig/Abhishek Route PRN Reason Start Time Stop Time Status Last Admin Dose Admin Lidocaine (Xylocaine 1% (Mpf)) 5 ml STK-MED ONCE .ROUTE 07/05/16 15:27 07/05/16 15:28 DC Procedures/MDM Patient is a 65-year-old male who presents for a paracentesis. His laboratory studies were basically normal. He had a paracentesis and 9 L of fluid were removed. At this point I doubt spontaneous bacterial peritonitis. I believe outpatient management is appropriate. The patient feels much better after paracentesis and wants to go home. The patient can return for any worsening symptoms. Departure Diagnosis: Primary Impression: Ascites Ascites type: other type Qualified Code: R18.8 - Other ascites Additional Impression: Abdominal pain Abdominal location: unspecified location Qualified Code: R10.9 - Abdominal pain, unspecified location Condition: Fair Patient Instructions: Ascites Additional Instructions: Call your primary care doctor TOMORROW for an appointment during the next 1-2 days.See the doctor sooner or return here if your condition worsens before your appointment time. EFFIE CASTRO MD Jul 05, 2016 18:25
== END 2016-07-05 16:29 | disposition home or self-care (01) ==
LOC: E/R 10:09
DX: R18.8 Other ascites (principal); E11.9 Type 2 diabetes mellitus without complications; Z79.82 Long term (current) use of aspirin; Z87.891 Personal history of nicotine dependence
CPT/HCPCS: 36415; 80053; 81001; 81003; 83690; 85025; 85610; 85730

== ENCOUNTER 2016-08-10 09:43 | Emergency (ER) | payer BC ==
[~2016-08-10] VITALS: Ht 165.1 cm; Wt 78.9 kg
[~2016-08-10 09:43] MED LIST changes: +ERGO500037 PO
[2016-08-10 09:45] VITALS: Ht 165.1 cm; Wt 78.9 kg
[2016-08-10 10:37] LABS: ADD SCAN DIFF NO
[2016-08-10 10:38] LABS: BASOPHIL # 0.1 10^3/ul (0.0-0.1); EOSINOPHILS # 0.2 10^3/ul (0.0-0.5); EOSINOPHILS % 2.2 % (0.0-7.0); HEMATOCRIT 43.8 % (42.0-52.0); HEMOGLOBIN 13.8 g/dl (14.0-18.0); LYMPHOCYTES # 1.1 10^3/ul (0.8-2.9); LYMPHOCYTES % 14.8 % (15.0-51.0); MEAN CORPUSCULAR HEMOGLOBIN 28.4 pg (29.0-33.0); MEAN CORPUSCULAR HGB CONC 31.5 g/dl (32.0-37.0); MEAN CORPUSCULAR VOLUME 90.1 fl (82.0-101.0); MEAN PLATELET VOLUME 9.2 fl (7.4-10.4); MONOCYTES % 13.5 % (0.0-11.0); NEUTROPHILS % 68.2 % (39.0-77.0); PLATELET COUNT 257 10^3/UL (140-415); RED BLOOD COUNT 4.86 10^6/ul (4.70-6.10); RED CELL DISTRIBUTION WIDTH 17.5 % (11.5-14.5); WHITE BLOOD COUNT 7.3 10^3/ul (4.8-10.8)
[2016-08-10 10:48] LABS: ALBUMIN 3.5 g/dl (3.3-4.9); POTASSIUM 4.6 mmol/L (3.5-5.1)
[2016-08-10 10:49] LABS: INR 1.18; PROTIME 15.1 Sec (12.2-14.2); PT RATIO 1.2
[2016-08-10 10:50] LABS: CREATININE 0.81 mg/dl (0.61-1.24)
[2016-08-10 10:51] LABS: ALBUMIN/GLOBULIN RATIO 0.87; BILIRUBIN,INDIRECT 0.5 mg/dl (0-1.1); BILIRUBIN,TOTAL 0.5 mg/dl (0.2-1.3); CALCIUM 9.2 mg/dl (8.4-10.2); TOTAL PROTEIN 7.5 g/dl (6.1-8.1)
[2016-08-10] MEDS ORDERED: LIDOCAINE 1% (MPF) 5 ML VIAL ONE (12:22)
--- NOTE | 2016-08-10 13:06 | ERD ---
ER Documentation Chief Complaint Date/Time DATE: 08/10/16 TIME: 13:04 Chief Complaint here for paracenthesis HPI 65-year-old male presents to the emergency department for therapeutic paracentesis. Patient states that he feels as if his abdomen is distended. He recently had a paracentesis of approximately 4 weeks ago. Patient reports no fevers, chills, vomiting. Patient reports no other significant abdominal pain or fevers. ROS All systems reviewed and are negative except as per history of present illness. Medications Home Meds Active Scripts Carvedilol* (Carvedilol*) 6.25 Mg Tablet, 6.25 MG PO BID, #60 TAB Prov:KINGSLEYSANDRA 05/14/16 Benazepril Hcl* (Benazepril Hcl*) 10 Mg Tablet, 10 MG PO BID, #60 TAB Prov:RASHAWN PÉREZ MD 05/14/16 Pravastatin Sodium* (Pravastatin Sodium*) 40 Mg Tablet, 40 MG PO HS, #30 TAB Prov:RASHAWN PÉREZ MD 05/13/16 Furosemide* (Lasix*) 20 Mg Tab, 20 MG PO BID, #60 Prov:RASHAWN PÉREZ MD 05/13/16 Sitagliptin* (Januvia*) 100 Mg Tablet, 100 MG PO DAILY, #30 TAB Prov:RASHAWN PÉREZ MD 05/13/16 Reported Medications Ergocalciferol (Vitamin D2) (VITAMIN D2) 50,000 Unit Capsule, 01691 UNIT PO EVERY 7 DAYS, CAP 07/05/16 Aspirin* (Aspirin* EC) 81 Mg Tablet.dr, 81 MG PO DAILY, TAB 05/01/14 Allergies Allergies: Coded Allergies: No Known Allergy (Unverified , 07/05/16) PMhx/Soc Medical and Surgical Hx: pt denies Medical Hx, pt denies Surgical Hx History of Surgery: No Anesthesia Reaction: No Hx Neurological Disorder: No Hx Respiratory Disorders: No Hx Cardiac Disorders: Yes (open heart surgery) Hx Psychiatric Problems: No Hx Miscellaneous Medical Probl: Yes (Ascites) Hx Alcohol Use: Yes (former) Hx Substance Use: No Hx Tobacco Use: No Smoking Status: Unknown if ever smoked FmHx Noncontributory for chief complaint Physical Exam Vitals Vital Signs Date Time Temp Pulse Resp B/P Pulse Ox O2 Delivery O2 Flow Rate FiO2 08/10/16 09:45 98.1 78 20 173/88 99 Physical Exam GENERAL: The patient is well developed and appropriate for usual state of health in no apparent distress HEENT: Pupils equal, round, and reactive to light. EOMI. There is no scleral icterus. NECK: C-spine is soft and supple, there is no meningismus. There is no cervical lymphadenopathy. LUNGS: Clear to auscultation bilaterally. There are no rales, wheezes or rhonchi. HEART: Regular rate and rhythm, no murmurs, clicks, rubs or gallops. ABDOMEN: Soft and distended with a fluid wave. There is no rebound, guarding. EXTREMITIES: There is no peripheral cyanosis or edema. No focal swelling or erythema. NEURO: The patient moves all four extremities with 5/5 strength. Cranial nerves II - XII are intact. Normal gait. Alert and oriented SKIN: There is no apparent rash or petechiae. HEME/LYMPHATIC: There is no evidence of excessive bruising or lymphedema. PSYCHIATRIC: The patient does not appear anxious or depressed. Result Diagram: 08/10/16 1031 08/10/16 1031 Results 24 hrs Laboratory Tests Test 08/10/16 10:31 White Blood Count 7.310^3/ul Red Blood Count 4.8610^6/ul Hemoglobin 13.8g/dl Hematocrit 43.8% Mean Corpuscular Volume 90.1fl Mean Corpuscular Hemoglobin 28.4pg Mean Corpuscular Hemoglobin Concent 31.5g/dl Red Cell Distribution Width 17.5% Platelet Count 61817^3/UL Mean Platelet Volume 9.2fl Neutrophils % 68.2% Lymphocytes % 14.8% Monocytes % 13.5% Eosinophils % 2.2% Basophils % 1.0% Nucleated Red Blood Cells % 0.0/100WBC Neutrophils # 5.010^3/ul Lymphocytes # 1.110^3/ul Monocytes # 1.010^3/ul Eosinophils # 0.210^3/ul Basophils # 0.110^3/ul Nucleated Red Blood Cells # 0.010^3/ul Prothrombin Time 15.1Sec Prothrombin Time Ratio 1.2 INR International Normalized Ratio 1.18 Activated Partial Thromboplast Time 40.0Sec Sodium Level 145mmol/L Potassium Level 4.6mmol/L Chloride Level 105mmol/L Carbon Dioxide Level 29mmol/L Anion Gap 16 Blood Urea Nitrogen 16mg/dl Creatinine 0.81mg/dl Glucose Level 114mg/dl Calcium Level 9.2mg/dl Total Bilirubin 0.5mg/dl Direct Bilirubin 0.00mg/dl Indirect Bilirubin 0.5mg/dl Aspartate Amino Transf (AST/SGOT) 26IU/L Alanine Aminotransferase (ALT/SGPT) 18IU/L Alkaline Phosphatase 156IU/L Total Protein 7.5g/dl Albumin 3.5g/dl Globulin 4.00g/dl Albumin/Globulin Ratio 0.87 Lipase 78U/L Current Medications Medications (Trade) Dose Ordered Sig/Abhishek Route PRN Reason Start Time Stop Time Status Last Admin Dose Admin Lidocaine (Xylocaine 1% (Mpf)) 5 ml STK-MED ONCE .ROUTE 08/10/16 12:22 08/10/16 12:23 DC Procedures/MDM Patient was taken to a room, seen and evaluated. Comfort measures were initiated. Diagnostic tests were ordered and reviewed. RADIOLOGY: reviewed with the radiologist REEVALUATION: Post paracentesis, patient felt much better was able to be discharged home with a nontender abdomen MEDICAL DECISION MAKIN-year-old male presents for therapeutic paracentesis. At this time, patient shows no evidence of peritonitis or other severe high risk complications of his liver disease. He is clinically well after paracentesis and appropriate for outpatient care. Departure Diagnosis: Primary Impression: Ascites Condition: Stable Referrals: DAVID HERRERA (PCP) Additional Instructions: See your doctor for follow-up as discussed. Take a copy of your test results, if appropriate, to this follow-up visit. See your doctor or return here if your symptoms do not improve as expected. At any time, please return to the emergency department for any change or worsening in her symptoms. KYLIE ALBARRAN Aug 10, 2016 13:06
--- NOTE | 2016-08-10 15:42 | RADRPT ---
PROCEDURE: Ultrasound guided paracentesis. CLINICAL INDICATION: Ascites and shortness of breath. COMPARISON: 07/05/2016. TECHNIQUE: The risks, benefits, and alternatives were explained to the patient and/or the patient's family, inc luding but not limited to bleeding, infection, pain, visceral or vascular damage, shock, and . The patient and/or the patient's family understood the risks and the alternatives and wished to pro ceed with the procedure. Informed written consent was obtained. A procedural time out was performed . The patient's name, date of , and procedure to be performed were verified. Utilizing ultrasound guidance, optimal location for entry to the peritoneal cavity was ascertained. The overlying skin was prepped and draped in the usual sterile fashion. Approximately 10 ml of 1% Xylocaine was injected locally for pain control. Using ultrasound guidance, an 8 [place] catheter wa s introduced into the peritoneal cavity in the right lower quadrant without difficulty. FINDINGS: Initial images demonstrate ascites. Approximately 10.0 liters of serous fluid was aspirated and dis carded. The patient tolerated the procedure well without complication. IMPRESSION: 1. Successful ultrasound-guided paracentesis. RPTAT: QQ .Parish Lee MD, Date Time Electronically viewed and signed by .Parish Lee MD, on 08/10/2016 15:42 .R/
== END 2016-08-10 13:20 | disposition home or self-care (01) ==
LOC: E/R 09:43
DX: R18.8 Other ascites (principal); E11.9 Type 2 diabetes mellitus without complications; R06.02 Shortness of breath; Z79.82 Long term (current) use of aspirin; Z79.84 Long term (current) use of oral hypoglycemic drugs
CPT/HCPCS: 36415; 80053; 83690; 85025; 85610; 85730

== ENCOUNTER 2016-09-18 08:49 | Emergency (ER) | payer BC ==
[~2016-09-18] VITALS: Wt 86.0 kg
[2016-09-18 10:54] LABS: ADD SCAN DIFF NO
[2016-09-18 10:56] LABS: BASOPHIL # 0.1 10^3/ul (0.0-0.1); EOSINOPHILS # 0.2 10^3/ul (0.0-0.5); EOSINOPHILS % 2.7 % (0.0-7.0); HEMATOCRIT 43.3 % (42.0-52.0); HEMOGLOBIN 13.7 g/dl (14.0-18.0); LYMPHOCYTES # 1.2 10^3/ul (0.8-2.9); LYMPHOCYTES % 15.5 % (15.0-51.0); MEAN CORPUSCULAR HEMOGLOBIN 28.3 pg (29.0-33.0); MEAN CORPUSCULAR HGB CONC 31.6 g/dl (32.0-37.0); MEAN CORPUSCULAR VOLUME 89.5 fl (82.0-101.0); MEAN PLATELET VOLUME 9.2 fl (7.4-10.4); MONOCYTES % 12.6 % (0.0-11.0); NEUTROPHIL # 5.4 10^3/ul (1.6-7.5); NEUTROPHILS % 67.8 % (39.0-77.0); PLATELET COUNT 270 10^3/UL (140-415); RED BLOOD COUNT 4.84 10^6/ul (4.70-6.10); RED CELL DISTRIBUTION WIDTH 16.9 % (11.5-14.5)
[2016-09-18 11:17] LABS: ALBUMIN 3.4 g/dl (3.3-4.9)
[2016-09-18 11:18] LABS: POTASSIUM 4.1 mmol/L (3.5-5.1)
[2016-09-18 11:20] LABS: BILIRUBIN,INDIRECT 0.5 mg/dl (0-1.1); BILIRUBIN,TOTAL 0.5 mg/dl (0.2-1.3); CREATININE 0.88 mg/dl (0.61-1.24)
[2016-09-18 11:21] LABS: ALBUMIN/GLOBULIN RATIO 0.85; CALCIUM 8.9 mg/dl (8.4-10.2); TOTAL PROTEIN 7.4 g/dl (6.1-8.1)
[2016-09-18 11:46] LABS: INR 1.32; PROTIME 16.5 Sec (12.2-14.2); PT RATIO 1.3
[2016-09-18 11:47] LABS: PARTIAL THROMBOPLASTIN TIME 37.2 Sec (25.0-35.0)
[2016-09-18] MEDS ORDERED: LIDOCAINE 1% (MPF) 5 ML VIAL ONE (12:58)
--- NOTE | 2016-09-18 13:06 | ERD ---
ER Documentation Chief Complaint Date/Time DATE: 09/18/16 TIME: 13:03 Chief Complaint PARACENTISIS; HPI This 5-year-old male with a history of liver failure and ascites with multiple paracentesis. The patient is here for therapeutic paracentesis. He has no abdominal pain. He says is having gradual abdominal swelling over the past couple of weeks. No fever nausea vomiting diarrhea or back pain ROS All systems reviewed and are negative except as per history of present illness. Medications Home Meds Active Scripts Carvedilol* (Carvedilol*) 6.25 Mg Tablet, 6.25 MG PO BID, #60 TAB Prov:SANDRA WYNN 05/14/16 Benazepril Hcl* (Benazepril Hcl*) 10 Mg Tablet, 10 MG PO BID, #60 TAB Prov:RASHAWN PÉREZ MD 05/14/16 Pravastatin Sodium* (Pravastatin Sodium*) 40 Mg Tablet, 40 MG PO HS, #30 TAB Prov:RASHAWN PÉREZ MD 05/13/16 Furosemide* (Lasix*) 20 Mg Tab, 20 MG PO BID, #60 Prov:RASHAWN PÉREZ MD 05/13/16 Sitagliptin* (Januvia*) 100 Mg Tablet, 100 MG PO DAILY, #30 TAB Prov:RASHAWN PÉREZ MD 05/13/16 Reported Medications Ergocalciferol (Vitamin D2) (VITAMIN D2) 50,000 Unit Capsule, [address] UNIT PO EVERY 7 DAYS, CAP 07/05/16 Aspirin* (Aspirin* EC) 81 Mg Tablet.dr, 81 MG PO DAILY, TAB 05/01/14 Allergies Allergies: Coded Allergies: No Known Allergy (Unverified , 07/05/16) PMhx/Soc History of Surgery: No Anesthesia Reaction: No Hx Neurological Disorder: No Hx Respiratory Disorders: No Hx Cardiac Disorders: Yes (open heart surgery) Hx Psychiatric Problems: No Hx Miscellaneous Medical Probl: Yes (Ascites) Hx Alcohol Use: No (DENIES) Hx Substance Use: No Hx Tobacco Use: Yes (QUIT 26 YEARS AGO) Smoking Status: Former smoker FmHx Family History: No coronary disease Physical Exam Vitals Vital Signs Date Time Temp Pulse Resp B/P Pulse Ox O2 Delivery O2 Flow Rate FiO2 09/18/16 08:52 98.0 78 18 154/82 99 Physical Exam Const: Well-developed, well-nourished Head: Atraumatic, normocephalic Eyes: Normal Conjunctiva, PERRLA, EOMI, normal sclera, no nystagmus ENT: Normal External Ears, Nose and Mouth, moist mucus membranes. Neck: Full range of motion. No meningismus, no lymphadenopathy. Resp: Clear to auscultation bilaterally, no wheezing, rhonchi, rales Cardio: Regular rate and rhythm, no murmurs, S1 S2 present Abd: Soft, non tender x 4, distended with ascites. Normal bowel sounds , no guarding or rebound, no pulsitile abdominal masses or bruits Skin: No petechiae or rashes, no ecchymosis , no maculopapular rash Back: No midline or flank tenderness Ext: No cyanosis, or edema, FROM x 4, normal inspection, neurovascularly intact x 4 Neur: Awake and alert, STR 5/5 x 4, sensation intact x 4, no focal findings, cerebellum intact Psych: Normal Mood and Affect Result Diagram: 09/18/16 1040 09/18/16 1040 Results 24 hrs Laboratory Tests Test 09/18/16 10:40 White Blood Count 8.010^3/ul Red Blood Count 4.8410^6/ul Hemoglobin 13.7g/dl Hematocrit 43.3% Mean Corpuscular Volume 89.5fl Mean Corpuscular Hemoglobin 28.3pg Mean Corpuscular Hemoglobin Concent 31.6g/dl Red Cell Distribution Width 16.9% Platelet Count 10032^3/UL Mean Platelet Volume 9.2fl Neutrophils % 67.8% Lymphocytes % 15.5% Monocytes % 12.6% Eosinophils % 2.7% Basophils % 1.0% Nucleated Red Blood Cells % 0.0/100WBC Neutrophils # 5.410^3/ul Lymphocytes # 1.210^3/ul Monocytes # 1.010^3/ul Eosinophils # 0.210^3/ul Basophils # 0.110^3/ul Nucleated Red Blood Cells # 0.010^3/ul Prothrombin Time 16.5Sec Prothrombin Time Ratio 1.3 INR International Normalized Ratio 1.32 Activated Partial Thromboplast Time 37.2Sec Sodium Level 143mmol/L Potassium Level 4.1mmol/L Chloride Level 104mmol/L Carbon Dioxide Level 26mmol/L Anion Gap 17 Blood Urea Nitrogen 20mg/dl Creatinine 0.88mg/dl Glucose Level 109mg/dl Calcium Level 8.9mg/dl Total Bilirubin 0.5mg/dl Direct Bilirubin 0.00mg/dl Indirect Bilirubin 0.5mg/dl Aspartate Amino Transf (AST/SGOT) 33IU/L Alanine Aminotransferase (ALT/SGPT) 26IU/L Alkaline Phosphatase 151IU/L Total Protein 7.4g/dl Albumin 3.4g/dl Globulin 4.00g/dl Albumin/Globulin Ratio 0.85 Current Medications Medications (Trade) Dose Ordered Sig/Abhishek Route PRN Reason Start Time Stop Time Status Last Admin Dose Admin Lidocaine (Xylocaine 1% (Mpf)) 5 ml STK-MED ONCE .ROUTE 09/18/16 12:58 09/18/16 12:59 DC 09/18/16 13:00 Procedures/MDM Radiology guided paracentesis with 10 L of fluid removed the patient is feeling much better Departure Diagnosis: Primary Impression: Ascites Ascites type: other type Qualified Code: R18.8 - Other ascites Condition: Stable Patient Instructions: GEGE Rios DO September 18, 2016 13:05
--- NOTE | 2016-09-18 13:09 | RADRPT ---
PROCEDURE: Ultrasound guided paracentesis. CLINICAL INDICATION: Ascites and shortness of breath. COMPARISON: 08/10/2016. TECHNIQUE: The risks, benefits, and alternatives were explained to the patient and/or the patient's family, inc luding but not limited to bleeding, infection, pain, visceral or vascular damage, shock, and . The patient and/or the patient's family understood the risks and the alternatives and wished to pro ceed with the procedure. Informed written consent was obtained. A procedural time out was performed . The patient's name, date of , and procedure to be performed were verified. Utilizing ultrasound guidance, optimal location for entry to the peritoneal cavity was ascertained. The overlying skin was prepped and draped in the usual sterile fashion. Approximately 10 ml of 1% Xylocaine was injected locally for pain control. Using ultrasound guidance, an 8 [place] catheter wa s introduced into the peritoneal cavity in the right lower quadrant without difficulty. FINDINGS: Initial images demonstrate ascites. Approximately 10.0 liters of serous fluid was aspirated and dis carded. The patient tolerated the procedure well without complication. IMPRESSION: 1. Successful ultrasound-guided paracentesis. RPTAT: QQ .Parish Lee MD, Date Time Electronically viewed and signed by .Parish Lee MD, on 09/18/2016 13:09 .R/
[2016-09-18 13:11] VITALS: BP 171/87; PULSE 78; RESP 16; TEMP 98.4
== END 2016-09-18 13:10 | disposition home or self-care (01) ==
LOC: E/R 08:49
DX: R18.8 Other ascites (principal); R06.02 Shortness of breath; Z79.82 Long term (current) use of aspirin; Z87.891 Personal history of nicotine dependence
CPT/HCPCS: 36415; 80053; 85025; 85610; 85730

== ENCOUNTER 2016-11-27 09:42 | Emergency (ER) | payer BC ==
[~2016-11-27] VITALS: Ht 172.7 cm; Wt 77.0 kg
[2016-11-27 09:46] VITALS: Ht 172.7 cm; Wt 77.0 kg
[2016-11-27 10:26] LABS: BASOPHIL # 0.1 10^3/ul (0.0-0.1); BASOPHILS % 0.9 % (0.0-2.0); EOSINOPHILS # 0.2 10^3/ul (0.0-0.5); EOSINOPHILS % 2.4 % (0.0-7.0); HEMATOCRIT 43.1 % (42.0-52.0); LYMPHOCYTES # 1.2 10^3/ul (0.8-2.9); LYMPHOCYTES % 16.4 % (15.0-51.0); MEAN CORPUSCULAR HEMOGLOBIN 28.1 pg (29.0-33.0); MEAN CORPUSCULAR HGB CONC 32.5 g/dl (32.0-37.0); MEAN CORPUSCULAR VOLUME 86.4 fl (82.0-101.0); MEAN PLATELET VOLUME 9.5 fl (7.4-10.4); MONOCYTE # 0.8 10^3/ul (0.3-0.9); NEUTROPHIL # 4.8 10^3/ul (1.6-7.5); PLATELET COUNT 260 10^3/UL (140-415); RED BLOOD COUNT 4.99 10^6/ul (4.70-6.10); RED CELL DISTRIBUTION WIDTH 16.2 % (11.5-14.5)
[2016-11-27 10:43] LABS: INR 1.27; PT RATIO 1.3
[2016-11-27 10:45] LABS: PARTIAL THROMBOPLASTIN TIME 41.7 Sec (25.0-35.0)
[2016-11-27 10:47] LABS: ALBUMIN/GLOBULIN RATIO 1.05; BILIRUBIN,INDIRECT 0.6 mg/dl (0-1.1); BILIRUBIN,TOTAL 0.6 mg/dl (0.2-1.3); CALCIUM 9.2 mg/dl (8.4-10.2); CREATININE 0.91 mg/dl (0.61-1.24); POTASSIUM 4.3 mmol/L (3.5-5.1); TOTAL PROTEIN 7.8 g/dl (6.1-8.1)
[2016-11-27] MEDS ORDERED: LIDOCAINE 1% (MPF) 5 ML VIAL ONE (12:18)
--- NOTE | 2016-11-27 12:27 | ERD ---
ER Documentation Chief Complaint Date/Time DATE: 11/27/16 TIME: 12:26 Chief Complaint Pt with increased abdominal girth here for paracentesis. done 2 month ago. HPI This is a 66-year-old male with a history of CAD, CHF. He is here for paracentesis. He is here with his and they are frustrated that no one is told him why his abdominal cavity keeps swelling. He did see a liver doctor 2 weeks ago and had blood work done is supposed to go see the liver doctor in 2 more weeks. It was presumed that the ascites was from heart failure but liver disease cannot be ruled out. He is coming monthly for paracentesis has been complaining of increased abdominal girth over the past month but does not have any pain no shortness of breath no vomiting diarrhea no fever. He is here just to have his abdominal cavity drained ROS All systems reviewed and are negative except as per history of present illness. Medications Home Meds Active Scripts Carvedilol* (Carvedilol*) 6.25 Mg Tablet, 6.25 MG PO BID, #60 TAB Prov:SANDRA WYNN 05/14/16 Benazepril Hcl* (Benazepril Hcl*) 10 Mg Tablet, 10 MG PO BID, #60 TAB Prov:RASHAWN PÉREZ MD 05/14/16 Pravastatin Sodium* (Pravastatin Sodium*) 40 Mg Tablet, 40 MG PO HS, #30 TAB Prov:RASHAWN PÉREZ MD 05/13/16 Furosemide* (Lasix*) 20 Mg Tab, 20 MG PO BID, #60 Prov:RASHAWN PÉREZ MD 05/13/16 Sitagliptin* (Januvia*) 100 Mg Tablet, 100 MG PO DAILY, #30 TAB Prov:RASHAWN PÉREZ MD 05/13/16 Reported Medications Ergocalciferol (Vitamin D2) (VITAMIN D2) 50,000 Unit Capsule, 70622 UNIT PO EVERY 7 DAYS, CAP 07/05/16 Aspirin* (Aspirin* EC) 81 Mg Tablet.dr, 81 MG PO DAILY, TAB 05/01/14 Allergies Allergies: Coded Allergies: No Known Allergy (Unverified , 07/05/16) PMhx/Soc History of Surgery: No Anesthesia Reaction: No Hx Neurological Disorder: No Hx Respiratory Disorders: No Hx Cardiac Disorders: Yes (open heart surgery) Hx Psychiatric Problems: No Hx Miscellaneous Medical Probl: Yes (Ascites) Hx Alcohol Use: No (DENIES) Hx Substance Use: No Hx Tobacco Use: Yes (QUIT 26 YEARS AGO) Smoking Status: Former smoker FmHx Family History: No coronary disease Physical Exam Vitals Vital Signs Date Time Temp Pulse Resp B/P Pulse Ox O2 Delivery O2 Flow Rate FiO2 11/27/16 09:46 98.1 91 18 154/88 98 Physical Exam Const: Well-developed, well-nourished Head: Atraumatic, normocephalic Eyes: Normal Conjunctiva, PERRLA, EOMI, normal sclera, no nystagmus ENT: Normal External Ears, Nose and Mouth, moist mucus membranes. Neck: Full range of motion. No meningismus, no lymphadenopathy. Resp: Clear to auscultation bilaterally, no wheezing, rhonchi, rales Cardio: Regular rate and rhythm, no murmurs, S1 S2 present Abd: Soft, nontender 4, distended with ascites. Normal bowel sounds, no guarding or rebound, no pulsitile abdominal masses or bruits Skin: No petechiae or rashes, no ecchymosis , no maculopapular rash Back: No midline or flank tenderness Ext: No cyanosis, or edema, FROM x 4, normal inspection, neurovascularly intact x 4 Neur: Awake and alert, STR 5/5 x 4, sensation intact x 4, no focal findings, cerebellum intact Psych: Normal Mood and Affect Result Diagram: 11/27/16 1000 11/27/16 1000 Results 24 hrs Laboratory Tests Test 11/27/16 10:00 White Blood Count 7.010^3/ul Red Blood Count 4.9910^6/ul Hemoglobin 14.0g/dl Hematocrit 43.1% Mean Corpuscular Volume 86.4fl Mean Corpuscular Hemoglobin 28.1pg Mean Corpuscular Hemoglobin Concent 32.5g/dl Red Cell Distribution Width 16.2% Platelet Count 68898^3/UL Mean Platelet Volume 9.5fl Neutrophils % 68.0% Lymphocytes % 16.4% Monocytes % 12.0% Eosinophils % 2.4% Basophils % 0.9% Nucleated Red Blood Cells % 0.0/100WBC Neutrophils # 4.810^3/ul Lymphocytes # 1.210^3/ul Monocytes # 0.810^3/ul Eosinophils # 0.210^3/ul Basophils # 0.110^3/ul Nucleated Red Blood Cells # 0.010^3/ul Prothrombin Time 16.0Sec Prothrombin Time Ratio 1.3 INR International Normalized Ratio 1.27 Activated Partial Thromboplast Time 41.7Sec Sodium Level 145mmol/L Potassium Level 4.3mmol/L Chloride Level 107mmol/L Carbon Dioxide Level 26mmol/L Anion Gap 16 Blood Urea Nitrogen 26mg/dl Creatinine 0.91mg/dl Glucose Level 153mg/dl Calcium Level 9.2mg/dl Total Bilirubin 0.6mg/dl Direct Bilirubin 0.00mg/dl Indirect Bilirubin 0.6mg/dl Aspartate Amino Transf (AST/SGOT) 23IU/L Alanine Aminotransferase (ALT/SGPT) 26IU/L Alkaline Phosphatase 151IU/L Total Protein 7.8g/dl Albumin 4.0g/dl Globulin 3.80g/dl Albumin/Globulin Ratio 1.05 Current Medications Medications (Trade) Dose Ordered Sig/Abhishek Route PRN Reason Start Time Stop Time Status Last Admin Dose Admin Lidocaine (Xylocaine 1% (Mpf)) 5 ml STK-MED ONCE .ROUTE 11/27/16 12:18 11/27/16 12:19 DC Procedures/MDM Paracentesis has been completed with 10 L removed without any hypotension Departure Diagnosis: Primary Impression: Ascites Ascites type: other type Qualified Code: R18.8 - Other ascites Condition: Stable Patient Instructions: Ascites Referrals: DAVID HERRERA (PCP) GEGE FOWLER DO Nov 27, 2016 12:27
[2016-11-27 12:28] VITALS: BP 148/88; PULSE 77; RESP 18
--- NOTE | 2016-11-27 12:40 | RADRPT ---
PROCEDURE: Ultrasound guided paracentesis. CLINICAL INDICATION: Ascites and shortness of breath. COMPARISON: 09/18/2016. TECHNIQUE: The risks, benefits, and alternatives were explained to the patient and/or the patient's family, inc luding but not limited to bleeding, infection, pain, visceral or vascular damage, shock, and . The patient and/or the patient's family understood the risks and the alternatives and wished to pro ceed with the procedure. Informed written consent was obtained. A procedural time out was performed . The patient's name, date of , and procedure to be performed were verified. Utilizing ultrasound guidance, optimal location for entry to the peritoneal cavity was ascertained. The overlying skin was prepped and draped in the usual sterile fashion. Approximately 10 ml of 1% Xylocaine was injected locally for pain control. Using ultrasound guidance, an 8 [place] catheter wa s introduced into the peritoneal cavity in the right lower quadrant without difficulty. FINDINGS: Initial images demonstrate ascites. Approximately 10.0 liters of serous fluid was aspirated and dis carded. The patient tolerated the procedure well without complication. IMPRESSION: 1. Successful ultrasound-guided paracentesis. RPTAT: QQ .Parish Lee MD, Date Time Electronically viewed and signed by .Parish Lee MD, on 11/27/2016 12:39 .R/
== END 2016-11-27 12:28 | disposition home or self-care (01) ==
LOC: E/R 09:42
DX: R18.8 Other ascites (principal); I50.9 Heart failure, unspecified; I25.10 Atherosclerotic heart disease of native coronary artery without angina pectoris; Z79.82 Long term (current) use of aspirin; Z79.84 Long term (current) use of oral hypoglycemic drugs; Z87.891 Personal history of nicotine dependence
CPT/HCPCS: 36415; 80053; 85025; 85610; 85730